=== PATIENT | female | born 1975 | race African-American/Black ===

== ENCOUNTER 2018-11-22 16:25 | Emergency (ER) | payer OTHER, MEDICAID ==
[~2018-11-22] VITALS: Ht 165.1 cm; Wt 131.0 kg
[~2018-11-22 16:25] MED LIST: ACET-2178 PO; HYDR-519 PO; RIVA20TA PO
[2018-11-22] MEDS ORDERED: HYDROCODONE/ACETAMINOPHEN 5/325MG TABLET PO ONE (18:15)
[2018-11-22] MEDS ORDERED: MORPHINE SULFATE 4 MG/ML CPJ (NOT FOR IM USE) IV ONE (19:30)
[2018-11-22 19:38] LABS: BASOPHILS % 0.6 % (0.0-2.0); EOSINOPHILS % 1.9 % (0.0-5.0); HEMATOCRIT. 35.2 % (36.0-48.0); HEMOGLOBIN. 11.3 g/dL (12.0-16.0); LYMPHOCYTES % 33.9 % (20.0-50.0); MEAN CORPUSCULAR HEMOGLOBIN 25.6 pg (28.0-32.0); MEAN PLATELET VOLUME 8.2 fl (7.4-10.4); MONOCYTES % 6.4 % (2.0-8.0); NEUTROPHILS % 57.2 % (40.0-76.0); PLATELET 159 x1000/uL (130-400); RED BLOOD CELL COUNT 4.39 mill/uL (4.2-5.4); RED CELL DISTRIBUTION WIDTH 15.9 % (11.6-14.6)
[2018-11-22 19:42] LABS: HCG SCREEN NEGATIVE
[2018-11-22 19:45] LABS: CHLORIDE 108 mEq/L (98-107)
[2018-11-22 19:46] LABS: PROTHROMBIN TIME 10.3 sec (9.6-11.0)
[2018-11-22 21:30] VITALS: BP 149/90
== END 2018-11-22 21:43 | disposition home or self-care (01) ==
LOC: ER 16:25
DX: D25.9 Leiomyoma of uterus, unspecified (principal); Z88.0 Allergy status to penicillin; Z91.041 Radiographic dye allergy status; J45.909 Unspecified asthma, uncomplicated; Z98.51 Tubal ligation status; Z86.711 Personal history of pulmonary embolism; Z86.718 Personal history of other venous thrombosis and embolism; Z79.01 Long term (current) use of anticoagulants
CPT/HCPCS: 36415; 76830; 76856; 80053; 83690; 84703; 85025; 85610; 96374; 99284; J2270

== ENCOUNTER 2019-03-10 19:19 | Emergency (ER) | payer OTHER, MEDICAID ==
[~2019-03-10] VITALS: Ht 167.6 cm; Wt 132.0 kg
[2019-03-11] MEDS ORDERED: LIDOCAINE HCL/PF 1% 10 MG/ML 5ML VIAL IJ ONE (00:15)
[2019-03-11] MEDS ORDERED: BACITRACIN ZINC OINT UDPKT TOP ONE (00:15)
[2019-03-11] MEDS ORDERED: BACITRACIN ZINC OINT UDPKT TOP NR (00:30)
[2019-03-11 01:58] VITALS: BP 151/90
== END 2019-03-11 02:08 | disposition home or self-care (01) ==
LOC: ER 19:19
DX: L60.0 Ingrowing nail (principal); Z91.19 Patient's noncompliance with other medical treatment and regimen; R03.0 Elevated blood-pressure reading, without diagnosis of hypertension; Z86.718 Personal history of other venous thrombosis and embolism
CPT/HCPCS: 99283; J3490

== ENCOUNTER 2019-08-09 14:52 | Emergency (ER) | payer OTHER, MEDICAID ==
[~2019-08-09] VITALS: Ht 170.2 cm; Wt 113.0 kg
[~2019-08-09 14:52] MED LIST changes: -ACET-2178 PO; +TOPUD PO
[2019-08-09] MEDS ORDERED: ACETAMINOPHEN WITH CODEINE 300/30MG TABLET PO ONE (15:15)
[2019-08-09 16:29] LABS: BASOPHILS % 0.6 % (0.0-2.0); EOSINOPHILS % 6.1 % (0.0-5.0); HEMATOCRIT. 32.6 % (36.0-48.0); HEMOGLOBIN. 10.2 g/dL (12.0-16.0); LYMPHOCYTES % 37.5 % (20.0-50.0); MEAN CORPUSCULAR HEMOGLOBIN 23.5 pg (28.0-32.0); MEAN CORPUSCULAR VOLUME 75.4 fL (81.0-99.0); MEAN PLATELET VOLUME 8.7 fl (7.4-10.4); MONOCYTES % 8.5 % (2.0-8.0); NEUTROPHILS % 47.3 % (40.0-76.0); PLATELET 178 x1000/uL (130-400); RED BLOOD CELL COUNT 4.33 mill/uL (4.2-5.4); RED CELL DISTRIBUTION WIDTH 17.4 % (11.6-14.6)
[2019-08-09 16:36] LABS: CHLORIDE 106 mEq/L (98-107)
[2019-08-09 20:07] VITALS: BP 158/85
== END 2019-08-09 21:01 | disposition home or self-care (01) ==
LOC: ER 14:52
DX: I82.402 Acute embolism and thrombosis of unspecified deep veins of left lower extremity (principal); M79.18 Myalgia, other site; J45.909 Unspecified asthma, uncomplicated; Z98.890 Other specified postprocedural states; Z98.51 Tubal ligation status; Z79.899 Other long term (current) drug therapy; Z88.0 Allergy status to penicillin
CPT/HCPCS: 36415; 71045; 73700; 78582; 80053; 83880; 84484; 85025; 93005; 99284; A9540; A9558